=== PATIENT | male | born 1970 | race African-American/Black ===

== ENCOUNTER 2019-07-25 23:00 | Emergency (ER) | payer BC ==
[~2019-07-25] VITALS: Ht 180.3 cm; Wt 97.5 kg
[~2019-07-25 23:00] MED LIST: BACTRIM DS TAB1 EACH PO; BYSTOLIC10 MG PO; NORCO 5-325 TA1 EACH PO
[2019-07-25] MEDS ORDERED: MOBIC7.5 MG PO (23:08)
[2019-07-26 00:42] VITALS: BP 128/89
== END 2019-07-26 00:48 | disposition home or self-care (01) ==
LOC: ER 23:00
DX: M54.5 Low back pain (principal); M25.551 Pain in right hip; I10 Essential (primary) hypertension; Z88.6 Allergy status to analgesic agent

== ENCOUNTER 2019-08-03 15:30 | Emergency (ER) | payer BC ==
[~2019-08-03] VITALS: Ht 180.3 cm; Wt 102.1 kg
[~2019-08-03 15:30] MED LIST changes: +MOBIC7.5 MG PO
[2019-08-03] MEDS ORDERED: NAPROSYN500 MG PO (17:49)
[2019-08-03] MEDS ORDERED: NORFLEX100 MG PO (17:49)
[2019-08-03 18:21] VITALS: BP 127/79
== END 2019-08-03 18:14 | disposition home or self-care (01) ==
LOC: ER 15:30
DX: S39.012A Strain of muscle, fascia and tendon of lower back, initial encounter (principal); I10 Essential (primary) hypertension; Z88.6 Allergy status to analgesic agent; V49.60XA Unspecified car occupant injured in collision with unspecified motor vehicles in traffic accident, initial encounter; Y93.89 Activity, other specified; Y92.89 Other specified places as the place of occurrence of the external cause; Y99.8 Other external cause status